=== PATIENT | male | born 1950 | race Caucasian/White ===

== ENCOUNTER 2021-07-22 00:25 | Inpatient (IN) | payer MEDICARE, SELFPAY ==
[2021-07-22] VITALS (29 sets, daily range): BP systolic 118–179; BP diastolic 78–114; PULSE 62–83; RESP 11–20; TEMP 36.7–37.2; O2SAT 86–97; BMI 34.7; BMI 34.2
--- NOTE | 2021-07-22 00:41 | EDS_ITS ---
HPI History of Present Illness Chief Complaint: Chest Pain Informant: patient Onset/Context/Timing Onset: Hours (6) Activity at onset: gradual Timing: Waxes and wanes Quality: Positive for Dull Location: Substernal Worsened By: Nothing Relieved By: Nothing Associated Symptoms: Positive for Acid Reflux; Negative for Nausea, Vomiting, Diaphoresis, Dyspnea, Cough, Fever, Lightheadedness and Palpitations Narrative Narrative: Patient presents with chest pain that began approximately 6 hours prior to arrival. Patient states it came on rather gradually. Patient states it has been waxing and waning since it started. Patient states it is over the substernal area and radiated into his right arm. Patient states nothing makes it worse and nothing makes it better. Patient states he thought he was having some reflux type symptoms and it would go away but it did not. Patient denies any nausea or vomiting. Patient denies any diaphoresis. Patient denies any shortness of breath or cough. Patient does have a history of coronary artery disease with coronary artery bypass graft. Patient states his last stress test or cardiac catheterization was several years ago. 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 CVD Risk Factors: Positive for Diabetes; Negative for Hypertension, Hypercholesterolemia, Family History 1' </=55 and Smoking PE Risk Factors: Negative for Recent Travel/Surgery, Recent Immobilization, Prior DVT or PE, Cancer and OCP + Smoking + >/=35 PFSH [facility] Medical History Coronary artery disease Diabetes Home Medications amlodipine 5 mg PO DAILY 07/22/21 [History Last Taken Unknown] aspirin 81 mg PO DAILY 07/22/21 [History Last Taken Unknown] cholecalciferol (vitamin D3) [Vitamin D3] 50 mcg PO DAILY 07/22/21 [History Last Taken Unknown] docusate sodium 300 mg PO BID 07/22/21 [History Last Taken Unknown] fluoxetine 20 mg PO DAILY 07/22/21 [History Last Taken Unknown] fluticasone propionate 1 puff INHALATION DAILY 07/22/21 [History Last Taken Unknown] folic acid 1 mg PO DAILY 07/22/21 [History Last Taken Unknown] gabapentin 600 mg PO TID 07/22/21 [History Last Taken Unknown] lisinopril-hydrochlorothiazide 1 tab PO DAILY 07/22/21 [History Last Taken Unknown] metformin 1,000 mg PO BID 07/22/21 [History Last Taken Unknown] metoprolol tartrate 100 mg PO BID 07/22/21 [History Last Taken Unknown] multivitamin 1 tab PO DAILY 07/22/21 [History Last Taken Unknown] sitagliptin [Januvia] 100 mg PO DAILY 07/22/21 [History Last Taken Unknown] Allergy/AdvReac Type Severity Reaction Status Date / Time No Known Allergies Allergy Verified 07/22/21 00:27 Surgical History H/O heart bypass surgery Social History Smoking Status: Never smoker ROS ROS ED Constitutional Constitutional ED: Denies chills or fever(s) Eyes Eyes: Reports blurry vision; Denies diplopia ENT ENT ED: Denies rhinorrhea or sore throat Cardiovascular Cardiovascular: Reports chest pain; Denies palpitations Respiratory/Chest Respiratory/Chest: Denies cough or dyspnea Gastrointestinal Gastrointestinal: Denies abdominal pain, nausea or vomiting Genitourinary Genitourinary ED: Denies dysuria or hematuria Musculoskeletal Musculoskeletal: Denies back pain or neck pain Integumentary Denies abscess or rash Neurologic Neurologic: Denies headache(s) or weakness Allergic/Immunologic Allergic/Immunologic ED: Denies mouth swelling or urticaria EXAM Physical Exam Const Vital Signs: 07/22/21 00:27 07/22/21 00:29 07/22/21 00:43 Temperature 98.4 F Temperature Source Oral Pulse Rate 81 Respiratory Rate 19 H Respiratory Effort Normal Respiratory Pattern Normal Blood Pressure 164/97 H Blood Pressure Mean 119 Pulse Ox 88 94 Oxygen Delivery Method Room Air Nasal Cannula Oxygen Flow Rate (L/min) 2 07/22/21 00:55 07/22/21 01:04 07/22/21 01:12 Temperature Temperature Source Pulse Rate 81 78 Respiratory Rate 16 Respiratory Effort Respiratory Pattern Blood Pressure 179/114 H 151/92 H Blood Pressure Mean 111 Pulse Ox 94 Oxygen Delivery Method Nasal Cannula Nasal Cannula Oxygen Flow Rate (L/min) 2 2 07/22/21 02:00 Temperature Temperature Source Pulse Rate 77 Respiratory Rate 16 Respiratory Effort Respiratory Pattern Blood Pressure 134/78 H Blood Pressure Mean 96 Pulse Ox 93 Oxygen Delivery Method Nasal Cannula Oxygen Flow Rate (L/min) 2 Positive well nourished, well developed and obese General Appearance ED: well developed and NAD Nutritional Appearance: obese HEENT normocephalic and atraumatic Eyes PERRL and EOMs intact bilaterally Neck supple and no JVD Chest Wall palpation of chest normal Resp normal respiratory effort and clear to auscultation bilaterally Effort and Inspection: Negative for respiratory distress Cardio regular rate, regular rhythm and no murmurs GI normal to inspection, nondistended, normoactive bowel sounds, soft to palpation, non-tender and non-distended Extremity normal to inspection General Extremety ED: Negative for edema or tenderness General Extremity: Negative for edema Neuro oriented x3, CN's II-XII intact bilaterally and no sensory deficits noted Sensorium / Orientation: awake and alert Motor Exam: strength 5/5 throughout Psych mental status grossly normal Heart Score History: Moderately Suspicious ECG: Normal Age: >/= 65 years Risk Factors: >/= 3 Risk Factors or History of CAD Troponin: >/=3 x Normal Limit Score: 7 MDM MDM MDM Narrative Medical decision making narrative: Patient was given aspirin here. EKG was obtained. On my interpretation, it showed a normal sinus rhythm with a rate of 79 with occasional PACs. MN interval, QRS interval, and QTc intervals were all normal. [place] was normal. There are no acute ST or T wave changes. Portable chest x-ray was obtained. There is 1 view. On my interpretation, there is some mild vascular congestion. There is no acute infiltrate. Bony thorax is normal. There is no cardiomegaly. Radiologist also interpreted the x-ray and agrees. CBC was within normal limits. Basic metabolic profile shows slightly elevated BUN of 24 and glucose of 217 but was otherwise within normal limits. BNP was slightly elevated at 154.5. Initial high-sensitivity troponin was normal at 24. 2-hour repeat high-sensitivity troponin was elevated at 708. Case was discussed with Dr. Terry. He recommended starting the patient on heparin drip. This was ordered. I was unable to find a report of his coronary artery bypass graft surgery. This was done in 2010. His records in clin[facility]ync only went back to 2012. Case was discussed with the hospitalist. He will admit the patient to his service. Patient understood and was agreeable with the plan. All questions were answered. Lab Data Attestation: I reviewed the patient's lab results. Labs: Laboratory Results - last 24 hr 07/22/21 07/22/21 07/22/21 00:29 00:29 00:29 WBC 8.2 RBC 4.43 L Hgb 14.3 Hct 41.4 MCV 93.5 MCH 32.3 H MCHC 34.5 RDW Std Deviation 42.5 RDW Coeff of [place]icha 12.3 Plt Count 217 MPV 9.3 Immature Gran % (Auto) 0.500 Neut % (Auto) 51.2 Lymph % (Auto) 32.5 [place] % (Auto) 11.4 H Eos % (Auto) 3.2 Baso % (Auto) 1.2 H Absolute Neuts (auto) 4.2 Absolute Lymphs (auto) 2.65 Nucleated RBC % 0 Sodium 140 Potassium 3.5 Chloride 109 H Carbon Dioxide 26.0 Anion Gap 5 BUN 24 H Creatinine 1.04 Estim Creat Clear Calc 70.39 Est GFR (MDRD) Af Amer 91 Est GFR (MDRD) Non-Af 75 BUN/Creatinine Ratio 23.1 H Glucose 217 H Calcium 9.1 Troponin I High Sens 24 B-Natriuretic Peptide 07/22/21 07/22/21 00:29 02:30 WBC RBC Hgb Hct MCV MCH MCHC RDW Std Deviation RDW Coeff of Licha Plt Count MPV Immature Gran % (Auto) Neut % (Auto) Lymph % (Auto) [place] % (Auto) Eos % (Auto) Baso % (Auto) Absolute Neuts (auto) Absolute Lymphs (auto) Nucleated RBC % Sodium Potassium Chloride Carbon Dioxide Anion Gap BUN Creatinine Estim Creat Clear Calc Est GFR (MDRD) Af Amer Est GFR (MDRD) Non-Af BUN/Creatinine Ratio Glucose Calcium Troponin I High Sens 708 H* B-Natriuretic Peptide 154.5 H Radiography Chest X-Ray - ED: 1 View, Read by ED Physician, Read by Radiologist and - (Mild congestion) Diagnostic Testing: Clinical Impression(s) from Imaging Studies Chest X-Ray 07/22/21 00:50 IMPRESSION: Suggestion of mild pulmonary edema Electronically Signed: Armando Shaikh DO at 1:32 EDT Reading Location ID and State: [facility] / ID Tel , Service support , EKG Initial EKG: Attestation: I personally reviewed and interpreted this EKG as follows: Interpretation: Sinus Rhythm (79) and No Acute Injury Pattern Prior EKG tracings: not available for review Discharge Plan Dx/Rx/DC Orders Clinical Impression: Chest pain, Non-STEMI (non-ST elevated myocardial infarction) Disposition Disposition: Acute Care Hospital [facility]
--- NOTE | 2021-07-22 00:50 | RAD_ITS ---
STUDY: X-RAY CHEST REASON FOR EXAM: Male, 71 years old. chest pain TECHNIQUE: Single AP portable view of the chest. COMPARISON: None. FINDINGS: Lungs are adequately inflated with subtle interstitial prominence in the perihilar region. Unsure if this represents mild pulmonary edema. Otherwise, the lungs are clear. There is mild cardiac enlargement. Median sternotomy wires are noted. Normal mediastinum and hugh. Normal visualized pulmonary arteries. Normal visualized aortic arch and descending thoracic aorta. Normal visualized thoracic spine. Normal visualized ribs, clavicles, and shoulders. There is no demonstrated abnormality of the visualized soft tissue structures of the upper abdomen. RAD/Chest 1 View (Portable) IMPRESSION: Suggestion of mild pulmonary edema Electronically Signed: Armando Shaikh DO at 1:32 EDT ,
--- NOTE | 2021-07-22 00:50 | EKG12_ITS ---
Test Reason : REPEAT EKG Blood Pressure : / mmHG Vent. Rate : 075 BPM Atrial Rate : 075 BPM P-R Int : 226 ms QRS Dur : 102 ms QT Int : 394 ms P-R-T Axes : 053 040 080 degrees QTc Int : 439 ms Sinus rhythm with sinus arrhythmia with 1st degree A-V block Otherwise normal ECG Confirmed by ANDREI HIGH, LINA ([id number]), editor dictionary MARCOS HERNANDEZ ([id number]) on 07/23/2021 12:53:09 PM Referred By: SAFIA Confirmed By:LINA FORBES MD
[2021-07-22 00:59] LABS: Absolute Lymphocyte Count 2.65 X10^3/uL (0.83-4.51); Absolute Neutrophil Count 4.2 X10^3/uL (2.0-7.7); Basophil% 1.2 % (0-1); Eosinophil# 0.26 X10^3/uL; Eosinophils% 3.2 % (0-5); Hematocrit 41.4 % (40-54); Hemoglobin 14.3 g/dL (13.0-16.5); Lymphocyte # 2.65 X10^3/ul (0.83-4.51); Lymphocyte % 32.5 % (19-41); Mean Corp Hgb Conc 34.5 g/dL (32-36); Mean Corpuscular Hgb 32.3 pg (27.0-32.0); Mean Corpuscular Volume 93.5 fL (80-94); Mean Platelet Vol. 9.3 fl (6.2-12.0); Monocyte# 0.93 X10^3/uL; Monocyte% 11.4 % (0-10); NRBC Flagged by Analyzer 0 % (0-5); Neutrophil # 4.18 X10^3/uL (2.7-7.7); Neutrophil % 51.2 % (47-70); Platelet Count 217 K/mm3 (150-450); RBC Distribution Width CV 12.3 % (11.6-14.6); RBC Distribution Width SD 42.5 fl (35.1-43.9); Red Blood Count 4.43 M/mm3 (4.6-6.2); White Blood Count 8.2 K/mm3 (4.4-11.0)
[2021-07-22] MEDS: Nitroglycerin SL (ED/IMG/CATH) 0.4 MG TABLET SL (01:04)
[2021-07-22 01:12] LABS: Anion Gap 5 (5-15); BUN 24 mg/dL (7-18); BUN/Creat Ratio 23.1 RATIO (10-20); Calcium,Total 9.1 mg/dL (8.5-10.1); Chloride 109 mmol/L (98-107); Creatinine, Serum 1.04 mg/dL (0.70-1.30); EST Glomerular Filtration Rate 75 mL/min (>60); Est Glom Filt Rate - Afr Amer 91 mL/min (>60); Estimated Creatinine Clearance 70.39 ml/min; Glucose 217 mg/dL (74-106); Potassium 3.5 mmol/L (3.5-5.1); Sodium Level 140 mmol/L (136-145)
[2021-07-22 01:18] LABS: Troponin-I HS (w/2H Reflex) 24 pg/mL (3.0-78.0)
[2021-07-22 02:02] LABS: BNP,B-Type NATRIURETIC PEPTIDE 154.5 pg/mL (0-100)
[2021-07-22 02:55] LABS: Troponin-I HS 708 pg/mL (3.0-78.0)
[2021-07-22 02:56] LABS: Reflex Troponin-HS? (from REC) Y
[2021-07-22] MEDS: Heparin Injection (Vial) 5,000 UNIT/ML VIAL 8000 UNIT IV (03:35)
--- NOTE | 2021-07-22 03:36 | HP.PCM.HOS_ITS ---
[facility] - General General Date of Admission: 07/22/21 HPI Narrative AMINATA DUDLEY, is a 71 M with a significant history of type 2 diabetes mellitus; hypertension; CAD status post three-vessel CABG in 2010; and muscle inflammation who presents to the emergency department with substernal chest pain that started about 6 hours before presentation. His chest pain was as severe and constant. He described the chest pain as sharp. The chest pain was progressively worsening. His chest pain radiated to his right arm. He denies any aggravating factors to the chest pain. He received aspirin and nitroglycerin which helped with the chest pain. His chest pain started while he was watching TV. He denies any nausea, vomiting, diarrhea or shortness of breath. [facility]LY [facility] Medical History Coronary artery disease Diabetes Home Medications amlodipine 5 mg PO DAILY 07/22/21 [History Last Taken Unknown] aspirin 81 mg PO DAILY 07/22/21 [History Last Taken Unknown] cholecalciferol (vitamin D3) [Vitamin D3] 50 mcg PO DAILY 07/22/21 [History Last Taken Unknown] docusate sodium 300 mg PO BID 07/22/21 [History Last Taken Unknown] fluoxetine 20 mg PO DAILY 07/22/21 [History Last Taken Unknown] fluticasone propionate 1 puff INHALATION DAILY 07/22/21 [History Last Taken Unknown] folic acid 1 mg PO DAILY 07/22/21 [History Last Taken Unknown] gabapentin 600 mg PO TID 07/22/21 [History Last Taken Unknown] lisinopril-hydrochlorothiazide 1 tab PO DAILY 07/22/21 [History Last Taken Unknown] metformin 1,000 mg PO BID 07/22/21 [History Last Taken Unknown] metoprolol tartrate 100 mg PO BID 07/22/21 [History Last Taken Unknown] multivitamin 1 tab PO DAILY 07/22/21 [History Last Taken Unknown] sitagliptin [Januvia] 100 mg PO DAILY 07/22/21 [History Last Taken Unknown] Allergy/AdvReac Type Severity Reaction Status Date / Time No Known Allergies Allergy Verified 07/22/21 00:27 Family History Other Diabetes Heart disease Kidney disease Family History other other (His father from heart attack at the age of 62.) Surgical History H/O heart bypass surgery History of carpal tunnel surgery Hx of cataract surgery Previous back surgery Social History Smoking Status: Former smoker ROS ROS Narrative Pertinent positives and pertinent negatives as noted in HPI. All other systems were reviewed and are negative. Vital Signs Vital Signs Vital Signs: 07/22/21 00:27 07/22/21 00:29 07/22/21 00:43 Temperature 98.4 F Temperature Source Oral Pulse Rate 81 Respiratory Rate 19 H Respiratory Effort Normal Respiratory Pattern Normal Blood Pressure 164/97 H Blood Pressure Mean 119 Pulse Ox 88 94 Oxygen Delivery Method Room Air Nasal Cannula Oxygen Flow Rate (L/min) 2 07/22/21 00:55 07/22/21 01:04 07/22/21 01:12 Temperature Temperature Source Pulse Rate 81 78 Respiratory Rate 16 Respiratory Effort Respiratory Pattern Blood Pressure 179/114 H 151/92 H Blood Pressure Mean 111 Pulse Ox 94 Oxygen Delivery Method Nasal Cannula Nasal Cannula Oxygen Flow Rate (L/min) 2 2 07/22/21 02:00 Temperature Temperature Source Pulse Rate 77 Respiratory Rate 16 Respiratory Effort Respiratory Pattern Blood Pressure 134/78 H Blood Pressure Mean 96 Pulse Ox 93 Oxygen Delivery Method Nasal Cannula Oxygen Flow Rate (L/min) 2 Weight Weight: 112.9 kg Body Mass Index (BMI) 34.7 Physical Exam Narrative Physical exam: General: Well-nourished, well-developed. Head: Normocephalic, atraumatic, no tenderness Eyes: Vision is grossly intact. EOMI ENT, no trauma, moist mucous membranes, no rhinorrhea Neck: Nontender, full range of motion, no spinal tenderness, deformities, step- off CVS: Regular rate and rhythm. S1-S2 present. No murmur, gallop or rub. Respiratory : Mild scattered rales, chest wall nontender, no wheezing Abdomen: Soft, nontender, nondistended, normal bowel sounds, no masses : Deferred Back: Nontender, no CVA tenderness, no midline spinal tenderness, deformities, step-offs Extremities: Nontender full range of motion, no trauma; 1+ edema bilateral lower legs and feet. Skin: Normal color, no trauma, abrasions Neuro: Alert, oriented, cranial nerves II through XII grossly intact. Psychiatry: Normal mood. Normal affect. Not depressed. Not anxious. Results Lab / Micro Data Result Diagrams: 07/22/21 00:29 07/22/21 00:29 Labs: Laboratory Results - last 24 hr 07/22/21 00:29: WBC 8.2, RBC 4.43 L, Hgb 14.3, Hct 41.4, MCV 93.5, MCH 32.3 H, MCHC 34.5, RDW Std Deviation 42.5, RDW Coeff of Licha 12.3, Plt Count 217, MPV 9.3, Immature Gran % (Auto) 0.500, Neut % (Auto) 51.2, Lymph % (Auto) 32.5, [place] % (Auto) 11.4 H, Eos % (Auto) 3.2, Baso % (Auto) 1.2 H, Absolute Neuts (auto) 4.2, Absolute Lymphs (auto) 2.65, Nucleated RBC % 0 07/22/21 00:29: Sodium 140, Potassium 3.5, Chloride 109 H, Carbon Dioxide 26.0, Anion Gap 5, BUN 24 H, Creatinine 1.04, Estim Creat Clear Calc 70.39, Est GFR (MDRD) Af Amer 91, Est GFR (MDRD) Non-Af 75, BUN/Creatinine Ratio 23.1 H, Glucose 217 H, Calcium 9.1 07/22/21 00:29: Troponin I High Sens 24 07/22/21 00:29: B-Natriuretic Peptide 154.5 H 07/22/21 02:30: Troponin I High Sens 708 H* Radiology Impression Chest X-Ray 07/22/21 00:50 IMPRESSION: Suggestion of mild pulmonary edema Electronically Signed: Armando Shaikh DO at 1:32 EDT , Assessment & Plan Assessment/Plan (1) Non-STEMI (non-ST elevated myocardial infarction): PLAN: Non-STEMI Review of labs shows that patient's troponin increased from 24 to 708; trend. Place on a monitored bed at progressive care unit Actual EKG tracing was independently visualized. EKG tracing showed sinus rhythm with PACs disease with no ST or T wave abnormalities. ASA 81 mg p.o. daily ordered SL NTG 0.4 mg prn as needed for chest pain ordered Morphine as needed for pain ordered We will check lipid panel. Statin: With history of muscle inflammation would hold off statin at this time. He has a history of diabetes; and CAD (S/P CABG) and all these should have been an indication for statin. CMP ordered. Anticoagulation: Emergency plan doctor discussed the case with voice professor on- call and heparin bolus and drip was given. Heparin drip continued. Stat EKG as needed for chest pain Cardiology counseled. Hypertension Blood pressure is not within goal Lisinopril and metoprolol continued. Trend blood pressure and adjust blood pressure medications. PRN Hydralazine ordered. Pulmonary edema BNP of 154.5 Patient with rales on examination. Chest x-ray was independently visualized and interpreted and agree with allege interpretation of pulmonary edema. Lasix 40 mg x 1 ordered. Diabetes mellitus Patient with hyperglycemia on presentation Januvia continued. N.p.o. except meds while waiting for cardiology to see jt last. Accu-Chek every 6 hours with correction scale insulin ordered. DVT prophylaxis: Not indicated as patient has been started on heparin drip.
[2021-07-22 04:47] LABS: Partial Thromboplast Time 28.9 Seconds (24.1-36.2)
--- NOTE | 2021-07-22 05:24 | EKG12_ITS ---
Test Reason : CHESTPAIN Blood Pressure : / mmHG Vent. Rate : 079 BPM Atrial Rate : 079 BPM P-R Int : 206 ms QRS Dur : 092 ms QT Int : 378 ms P-R-T Axes : 039 027 057 degrees QTc Int : 433 ms Sinus rhythm with Premature atrial complexes Otherwise normal ECG Confirmed by ANDREI HIGH, LINA ([id number]), primer expeditor and drier MARCOS HERNANDEZ ([id number]) on 07/23/2021 12:53:30 PM Referred By: SAFIA Confirmed By:LINA FORBES MD
--- NOTE | 2021-07-22 05:32 | EKG12_ITS ---
Test Reason : MORNING EKG Blood Pressure : / mmHG Vent. Rate : 075 BPM Atrial Rate : 075 BPM P-R Int : 216 ms QRS Dur : 092 ms QT Int : 380 ms P-R-T Axes : 049 021 074 degrees QTc Int : 424 ms Sinus rhythm with 1st degree A-V block Nonspecific T wave abnormality Abnormal ECG Confirmed by PRASHANTH HIGH, MOUNA ([id number]), content editor MARCOS HERNANDEZ ([id number]) on 07/28/2021 8:51:08 AM Referred By: ROMINA Confirmed By:MOUNA ALFORD MD
[2021-07-22] MEDS: 0.9% Saline Lock 10 ML Syringe IV ×3 (06:09→11:14)
[2021-07-22] MEDS: Furosemide 40 MG/4 ML Vial IV (06:09)
[2021-07-22 06:25] LABS: Bedside Glucose 251 mg/dL (74-106)
[2021-07-22] MEDS: Nitroglycerin (INPATIENT USE) 0.4 MG TAB.SUBL SL (06:25)
[2021-07-22 06:39] LABS: Absolute Lymphocyte Count 2.39 X10^3/uL (0.83-4.51); Absolute Neutrophil Count 5.8 X10^3/uL (2.0-7.7); Basophil# 0.08 X10^3/uL; Basophil% 0.9 % (0-1); Eosinophils% 2.1 % (0-5); Hematocrit 38.1 % (40-54); Hemoglobin 13.4 g/dL (13.0-16.5); Lymphocyte # 2.39 X10^3/ul (0.83-4.51); Lymphocyte % 25.4 % (19-41); Mean Corp Hgb Conc 35.2 g/dL (32-36); Mean Corpuscular Hgb 32.9 pg (27.0-32.0); Mean Corpuscular Volume 93.6 fL (80-94); Mean Platelet Vol. 9.5 fl (6.2-12.0); Monocyte# 0.87 X10^3/uL; Monocyte% 9.2 % (0-10); NRBC Flagged by Analyzer 0 % (0-5); Neutrophil # 5.83 X10^3/uL (2.7-7.7); Platelet Count 198 K/mm3 (150-450); RBC Distribution Width SD 41.8 fl (35.1-43.9); Red Blood Count 4.07 M/mm3 (4.6-6.2); White Blood Count 9.4 K/mm3 (4.4-11.0)
[2021-07-22 07:03] LABS: ALB/GLOB Ratio 1.2 RATIO (0.9-2.4); AST(SGOT) 29 U/L (15-37); Alanine Aminotransfer ALT/SGPT 27 U/L (16-61); Albumin, Serum 3.3 g/dL (3.2-5.0); Alkaline Phosphatase 55 U/L (45-117); Anion Gap 5 (5-15); BUN 22 mg/dL (7-18); BUN/Creat Ratio 21.6 RATIO (10-20); Calcium,Total 8.6 mg/dL (8.5-10.1); Chloride 107 mmol/L (98-107); Cholesterol 189 mg/dL (200); Creatinine, Serum 1.02 mg/dL (0.70-1.30); EST Glomerular Filtration Rate 77 mL/min (>60); Est Glom Filt Rate - Afr Amer 93 mL/min (>60); Estimated Creatinine Clearance 71.77 ml/min; Globulin 2.8 g/dL (2.2-4.2); Glucose 238 mg/dL (74-106); High Density Lipoprotein 38 mg/dL; Potassium 3.8 mmol/L (3.5-5.1); Protein, Total 6.1 g/dL (6.4-8.2); Sodium Level 139 mmol/L (136-145); Triglycerides 106 mg/dL; Very Low Density Lipoprotein 21 mg/dL (5-40)
[2021-07-22 07:31] LABS: Troponin-I HS 2280 pg/mL (3.0-78.0)
[2021-07-22] MEDS: Folic Acid 1 MG Tablet PO (07:53)
[2021-07-22] MEDS: amLODIPine 5 MG Tablet PO (07:53)
[2021-07-22] MEDS: Lisinopril 10 MG Tablet PO (07:54)
[2021-07-22] MEDS: Aspirin 81 MG TAB.CHEW PO (07:54)
[2021-07-22] MEDS: LINAGLIPTIN 5 MG TABLET PO (07:55)
[2021-07-22] MEDS: Multivitamins,Therapeutic Tablet 1 TABLET PO (07:55)
[2021-07-22] MEDS: Metoprolol Tartrate 100 MG Tablet PO (07:55)
[2021-07-22] MEDS: FLUoxetine 20 MG Capsule PO (07:55)
--- NOTE | 2021-07-22 07:56 | PCM.CONS.C ---
Assessment & Plan Assessment/Plan (1) Non-STEMI (non-ST elevated myocardial infarction): PLAN: The patient has a clinical scenario and objective findings compatible with a non-ST segment elevation NM-acute. At the present time he appears to be resting comfortably. He will continue to be monitored. He will continue medical therapy as deemed appropriate. He will be asked to have further noninvasive evaluation of his left ventricular wall motion and systolic function with a transthoracic echocardiogram. He will also be asked to have further invasive evaluation of his coronary/graft status with a diagnostic cardiac catheterization. The procedure and risk were discussed with him. He was agreeable to this approach. (2) CAD (coronary artery disease): PLAN: The patient has a history of underlying CAD. The details of his CAD are unknown at this time. His diagnosis did lead to a CABG in 2010. He states he has not required additional revascularization therapy since that time. He is going to continue medical management as well as a combination of noninvasive and invasive evaluation at this time. (3) S/P CABG (coronary artery bypass graft): PLAN: The patient states he received a mammary graft and 2 vein grafts. The details are unknown at this time. A request has been placed to the hospital that performed his open heart surgery for a copy of his cardiovascular records including his CABG report. In the interim he will continue medical management and proceed with his cardiovascular evaluation. (4) HLD (hyperlipidemia): PLAN: The patient has a history of hyperlipidemia. He will continue medical therapy and follow-up. (5) HTN (hypertension): PLAN: The patient has a history of hypertension. He will continue medical therapy. (6) Diabetes mellitus: PLAN: The patient has history of diabetes mellitus. He will continue evaluation care per internal medicine. Addt'l Comments The above was discussed with the patient and previously discussed with the [facility] ED physician staff. This note was generated using a voice recognition system and there may be incorrect words, spelling or punctuation that were not noted when reviewing the office note prior to saving. HPI Consult Data Date of Consult: 07/22/21 HPI Narrative HPI Narrative: AMINATA DUDLEY, is a 71 year old white male who presents for [facility] consultation based upon concerns of an acute non-ST segment elevation NM superimposed upon a history of CAD, CABG, hyperlipidemia, hypertension, and diabetes mellitus. He states that in 2010 he was diagnosed with CAD and subsequently underwent CABG through the [facility] in [place], [place]. He believes sometime since that time he had a follow-up diagnostic cardiac catheterization performed also through the [facility]. To the best of his knowledge he received a CABG x3 with a mammary artery and 2 vein grafts (taken from his right lower extremity) and upon follow-up evaluation with diagnostic cardiac catheterization did not require any form of percutaneous revascularization therapy. To the best of his knowledge at that time he has grafts remain patent. He states he was always told he had one other vessel that had a narrowing in it but it had not required bypass or percutaneous intervention. He wants to follow-up with his drill operator pneumatic last month but states he found out that his drill operator pneumatic retired in April of this year. He has yet to establish care with another drill operator pneumatic. He notes that recently he has been having chest discomfort which he describes as chest tightness. He initially attributed it to musculoskeletal discomfort from working in his garage. However yesterday it became much more bothersome as it radiated from his pectoral area to the center of his chest and then down his right upper extremity. He did not complain of associated dyspnea, nausea, or diaphoresis. He subsequently presented to the [facility] emergency department for evaluation. There he had an initial negative troponin I level. His initial ECG demonstrated sinus rhythm with a nonspecific T wave abnormality. He had a subsequent troponin I level that was positive. He was recommended for admission to the hospital for further inpatient evaluation and care including diagnostic cardiac catheterization. Since being in the hospital on medical management which had included nitroglycerin sublingual and IV heparin he states his symptoms resolved. He has had no new acute symptoms. He has had a follow-up troponin I level which has continued to increase. He has had follow-up ECGs that have continued demonstrate sinus rhythm with nonspecific T wave abnormality. He has denied orthopnea or PND. He has had some edema in the right lower extremity which is the side of his SVG harvest. There has been no report of near syncope or syncope. He states he does have a diagnosis of an inflammatory issue regarding his muscles. He was treated for period of time with corticosteroids. He states he felt better. However his glucose levels became much more challenging to control. Thus corticosteroids had to be discontinued. He states he was subsequently placed on medical therapy with folic acid. [facility] Medical History (Updated 07/22/21 @ 08:[address] Jeovanny Terry MD) CAD (coronary artery disease) Coronary artery disease Diabetes Diabetes mellitus HLD (hyperlipidemia) HTN (hypertension) Home Medications amlodipine 5 mg PO DAILY 07/22/21 [History Last Taken Unknown] aspirin 81 mg PO DAILY 07/22/21 [History Last Taken Unknown] cholecalciferol (vitamin D3) [Vitamin D3] 50 mcg PO DAILY 07/22/21 [History Last Taken Unknown] docusate sodium 300 mg PO BID 07/22/21 [History Last Taken Unknown] fluoxetine 20 mg PO DAILY 07/22/21 [History Last Taken Unknown] fluticasone propionate 1 puff INHALATION DAILY 07/22/21 [History Last Taken Unknown] folic acid 1 mg PO DAILY 07/22/21 [History Last Taken Unknown] gabapentin 600 mg PO TID 07/22/21 [History Last Taken Unknown] lisinopril-hydrochlorothiazide 1 tab PO DAILY 07/22/21 [History Last Taken Unknown] metformin 1,000 mg PO BID 07/22/21 [History Last Taken Unknown] metoprolol tartrate 100 mg PO BID 07/22/21 [History Last Taken Unknown] multivitamin 1 tab PO DAILY 07/22/21 [History Last Taken Unknown] sitagliptin [Januvia] 100 mg PO DAILY 07/22/21 [History Last Taken Unknown] Allergy/AdvReac Type Severity Reaction Status Date / Time No Known Allergies Allergy Verified 07/22/21 00:27 Family History Other Diabetes Heart disease Kidney disease Family History other Surgical History (Updated 07/22/21 @ 08:[address] Jeovanny Terry MD) H/O heart bypass surgery History of carpal tunnel surgery Hx of cataract surgery Previous back surgery S/P CABG (coronary artery bypass graft) Social History Smoking Status: Former smoker ROS Constitutional Constitutional: Reports as per HPI Eyes Eyes: Reports as per HPI ENT HEENT: Reports as per HPI Cardiovascular Cardiovascular: Reports chest pain at rest Respiratory/Chest Respiratory/Chest: Reports as per HPI Gastrointestinal Gastrointestinal: Reports as per HPI Genitourinary Genitourinary: Reports as per HPI Musculoskeletal Musculoskeletal: Reports myalgias Integumentary Integumentary: Reports as per HPI Neurologic Neurologic: Reports as per HPI Psychiatric Psychiatric: Reports as per HPI Physical Exam Const alert, oriented x3, no apparent distress and healthy appearing Orientation / Consciousness: awake HEENT normocephalic, head/scalp atraumatic and hearing grossly normal bilaterally Eyes PERRL, EOMs intact bilaterally and conjunctivae normal Neck full ROM, supple and no JVD Chest Chest: midline sternotomy incision Resp clear to auscultation bilaterally Cardio regular rate, regular rhythm, S1 normal heart sound and S2 normal heart sound GI normal to inspection, nondistended, normoactive bowel sounds Extremity no pedal edema Extremity Narrative: Right lower extremity: Surgical incisions Skin no rashes or lesions noted Neuro oriented x3, moves all extremities, no focal motor deficits and no sensory deficits noted Psych mental status grossly normal Risk Stratification Risk Stratification Applicable: Yes Age >/= 65: Yes >/= 3 CAD Risk Factors (HTN, HLD, DM, family hx of CAD, or current smoker): Yes Aspirin Use in the Past 7 Days: Yes Severe Angina (>/= episodes in 24 hours): Yes EKG ST Changes >/= 0.5mm: No Positive Cardiac Marker: Yes NIKOS Risk Stratification Score: 5 NIKOS % Risk: 25% Risk Procedure Criteria Type of Procedure Procedure Type: Elective Elective Risks - COVID COVID Risk Discussion: The surgeon/proceduralist and patient have discussed in detail the risk of exposure to and/or potential harm posed by the COVID-19 virus with having a surgery/procedure at this time versus the risk of delaying the surgery/procedure. It is not possible to know either the risk of delaying the surgery or procedure or chance of getting an infection with perfect accuracy, but a joint decision was made between the patient and the surgeon/proceduralist to proceed at this time with the scheduled surgery/procedure as indicated on the consent form. Objective Data Vital Signs: Vital Signs Temp Pulse Resp BP Pulse Ox 98.0 F 69 16 132/78 H 97 07/22/21 07:52 07/22/21 07:52 07/22/21 07:52 07/22/21 07:52 07/22/21 07:52 Oxygen Flow Rate (L/min) 2 Oxygen Delivery Method Nasal Cannula Weight: 245 lb 13.047 oz Body Mass Index (BMI) 34.2 Lab / Micro Data Result Diagrams: 07/22/21 06:10 07/22/21 06:10 Labs: Laboratory Results - last 24 hr 07/22/21 00:29: WBC 8.2, RBC 4.43 L, Hgb 14.3, Hct 41.4, MCV 93.5, MCH 32.3 H, MCHC 34.5, RDW Std Deviation 42.5, RDW Coeff of Licha 12.3, Plt Count 217, MPV 9.3, Immature Gran % (Auto) 0.500, Neut % (Auto) 51.2, Lymph % (Auto) 32.5, Harrison % (Auto) 11.4 H, Eos % (Auto) 3.2, Baso % (Auto) 1.2 H, Absolute Neuts (auto) 4.2, Absolute Lymphs (auto) 2.65, Nucleated RBC % 0 07/22/21 00:29: Sodium 140, Potassium 3.5, Chloride 109 H, Carbon Dioxide 26.0, Anion Gap 5, BUN 24 H, Creatinine 1.04, Estim Creat Clear Calc 70.39, Est GFR (MDRD) Af Amer 91, Est GFR (MDRD) Non-Af 75, BUN/Creatinine Ratio 23.1 H, Glucose 217 H, Calcium 9.1 07/22/21 00:29: Troponin I High Sens 24 07/22/21 00:29: B-Natriuretic Peptide 154.5 H 07/22/21 02:30: Troponin I High Sens 708 H* 07/22/21 03:20: PT 13.0, INR 1.0, APTT 28.9 07/22/21 06:10: WBC 9.4, RBC 4.07 L, Hgb 13.4, Hct 38.1 L, MCV 93.6, MCH 32.9 H, MCHC 35.2, RDW Std Deviation 41.8, RDW Coeff of Licha 12.0, Plt Count 198, MPV 9.5, Immature Gran % (Auto) 0.400, Neut % (Auto) 62.0, Lymph % (Auto) 25.4, Harrison % (Auto) 9.2, Eos % (Auto) 2.1, Baso % (Auto) 0.9, Absolute Neuts (auto) 5.8, Absolute Lymphs (auto) 2.39, Nucleated RBC % 0 07/22/21 06:10: Sodium 139, Potassium 3.8, Chloride 107, Carbon Dioxide 27.0, Anion Gap 5, BUN 22 H, Creatinine 1.02, Estim Creat Clear Calc 71.77, Est GFR (MDRD) Af Amer 93, Est GFR (MDRD) Non-Af 77, BUN/Creatinine Ratio 21.6 H, Glucose 238 H, Calcium 8.6, Total Bilirubin 0.50, AST 29, ALT 27, Alkaline Phosphatase 55, Total Protein 6.1 L, Albumin 3.3, Globulin 2.8, Albumin/Globulin Ratio 1.2, Triglycerides 106, Cholesterol 189, LDL Cholesterol 130, VLDL Cholesterol 21, HDL Cholesterol 38 L 07/22/21 06:10: Troponin I High Sens 2280 H* 07/22/21 06:10: POC Glucose 251 H Cardiology Labs/Tests 07/22/21 00:29: WBC 8.2, RBC 4.43 L, Hgb 14.3, Hct 41.4, MCV 93.5, MCH 32.3 H, MCHC 34.5, Plt Count 217, MPV 9.3, Immature Gran % (Auto) 0.500, Neut % (Auto) 51.2, Lymph % (Auto) 32.5, Harrison % (Auto) 11.4 H, Eos % (Auto) 3.2, Baso % (Auto) 1.2 H, Absolute Neuts (auto) 4.2, Nucleated RBC % 0 07/22/21 00:29: Sodium 140, Potassium 3.5, Chloride 109 H, Carbon Dioxide 26.0, Anion Gap 5, BUN 24 H, Creatinine 1.04, Est GFR (MDRD) Af Amer 91, Est GFR (MDRD) Non-Af 75, BUN/Creatinine Ratio 23.1 H, Glucose 217 H, Calcium 9.1 07/22/21 00:29: B-Natriuretic Peptide 154.5 H 07/22/21 03:20: PT 13.0, INR 1.0, APTT 28.9 07/22/21 06:10: WBC 9.4, RBC 4.07 L, Hgb 13.4, Hct 38.1 L, MCV 93.6, MCH 32.9 H, MCHC 35.2, Plt Count 198, MPV 9.5, Immature Gran % (Auto) 0.400, Neut % (Auto) 62.0, Lymph % (Auto) 25.4, Harrison % (Auto) 9.2, Eos % (Auto) 2.1, Baso % (Auto) 0.9, Absolute Neuts (auto) 5.8, Nucleated RBC % 0 07/22/21 06:10: Sodium 139, Potassium 3.8, Chloride 107, Carbon Dioxide 27.0, Anion Gap 5, BUN 22 H, Creatinine 1.02, Est GFR (MDRD) Af Amer 93, Est GFR (MDRD) Non-Af 77, BUN/Creatinine Ratio 21.6 H, Glucose 238 H, Calcium 8.6, Total Bilirubin 0.50, Triglycerides 106, Cholesterol 189, LDL Cholesterol 130, VLDL Cholesterol 21, HDL Cholesterol 38 L Rhythm: Sinus rhythm EKG: As noted above Radiography Diagnostic Testing: Radiology Impression Chest X-Ray 07/22/21 00:50 IMPRESSION: Suggestion of mild pulmonary edema Electronically Signed: Armando Shaikh DO at 1:32 EDT ,
--- NOTE | 2021-07-22 08:15 | ECHOCS_ITS ---
Reason For Study: S/P VT Procedure This was a 2D Doppler, Color Flow transthoracic echocardiogram. Technically difficult study, patient scanned supine post heart cath. Contrast injection performed. The study was technically difficult. Contrast injection was performed. Exam performed portable in patient room. Left Ventricle Mildly dilated left ventricle. Mild to moderate segmental systolic dysfunction (see wall motion). The estimated ejection fraction is 40 %. No evidence for diastolic dysfunction. Mid-Anterior : Akinetic. Mid-Lateral : Hypokinetic. Mid-Posterior: Hypokinetic. Mid-Inferior: Hypokinetic. Mid- inferoseptal : Akinetic. Mid-anteroseptal : Akinetic. Sheridan : Akinetic. Right Ventricle Normal RV size. Normal systolic function. Atria Normal left atrium. Normal right atrium. No doppler evidence for ASD. Mitral Valve There is no mitral annular calcification. Normal mitral valve. Trivial mitral valve insufficiency. Tricuspid Valve Normal tricuspid valve. Mild tricuspid valve insufficiency. Right ventricular systolic pressure estimated to be 27 mmHg. Aortic Valve Trisinus/trileaflet aortic valve. Normal aortic valve. Mild (1+) aortic valve insufficiency. Pulmonic Valve The pulmonic valve is not well visualized. Trivial pulmonic valve insufficiency. Great Vessels Mildly dilated aortic root. Pericardium/Pleural No pericardial effusion. Medication Diluted definity 3ml given slow IV push to enhance endocardial definition. MMode/2D Measurements & Calculations LVIDd: 5.9 cm IVSd: 0.89 cm LVOT diam: 2.3 cm LVIDs: 4.8 cm LVPWd: 0.74 cm FS: 18.9 % LVOT area: 4.2 cm2 Ao root diam: 4.4 cm LAV(MOD-bp): 64.7 ml LA A4 area: 21.2 cm2 LA dimension: 4.3 cm LAV(MOD-bp) Indexed: 28.1 ml/m2 LAV(MOD-sp2): 60.9 ml LAV(MOD-sp4): 65.7 ml Time Measurements MV dec time: 0.24 sec Doppler Measurements & Calculations MV E max zach: 49.7 cm/sec Lat Peak E' Zach: 5.2 cm/sec Med Peak E' Zach: 5.0 cm/sec MV A max zach: 72.6 cm/sec E/E' lat: 9.5 E/E' med: 9.9 MV E/A: 0.69 MV V2 max: 71.0 cm/sec MV P1/2t max zach: 54.4 cm/sec Ao V2 max: 88.8 cm/sec MV max P.0 mmHg MV P1/2t: 93.6 msec Ao max P.2 mmHg MV V2 mean: 38.9 cm/sec MV dec slope: 170.2 cm/sec2 Ao V2 mean: 61.2 cm/sec MV mean P.71 mmHg Ao mean P.7 mmHg MV V2 VTI: 22.4 cm MVA(P1/2t): 2.4 cm2 Ao V2 VTI: 17.2 cm MVA(VTI): 3.1 cm2 LINSEY(I,D): 4.0 cm2 LINSEY(V,D): 4.1 cm2 AI max zach: 232.2 cm/sec LV V1 max: 85.8 cm/sec SV(LVOT): 69.6 ml AI max P.6 mmHg LV V1 max P.9 mmHg LV V1 mean P.4 mmHg AI dec slope: 111.8 cm/sec2 LV V1 mean: 55.3 cm/sec AI P1/2t: 608.5 msec LV V1 VTI: 16.5 cm PA V2 max: 82.8 cm/sec TR max zach: 246.0 cm/sec TR max P.2 mmHg ECHO/Echo Complete W/ Contrast Interpretation Summary The study was technically difficult. Contrast injection was performed. Mildly dilated left ventricle. Mild to moderate segmental systolic dysfunction (see wall motion). The estimated ejection fraction is 40 %. Mild tricuspid valve insufficiency. Mild (1+) aortic valve insufficiency. Trivial pulmonic valve insufficiency. Mildly dilated aortic root. Right ventricular systolic pressure estimated to be 27 mmHg. No evidence for diastolic dysfunction. Ordering Physician: Jeovanny Terry Referring Physician: Out of Town Doctor Performed By: Gerry Crouch RCS
--- NOTE | 2021-07-22 08:18 | CASEMGMT ---
According to the [facility] website, the following are in-network tertiary facilities: [facility], [facility], [facility], [facility], [facility], [facility], [facility], [facility], and . Leonid JAMES CM
[2021-07-22] MEDS: 0.9% Normal Saline 1,000 ML 50 ML IV (11:10)
[2021-07-22] MEDS: Nitroglycerin Infusion 250 ML 3 MG CONT INF (11:11)
[2021-07-22 11:37] LABS: Bedside Glucose 193 mg/dL (74-106)
--- NOTE | 2021-07-22 11:37 | PCM.DC.SUM ---
Providers Date of Admission: 07/22/21 Date of Discharge: 07/22/21 Primary Care Physician: DEWEY MEADE Consultations 07/22/21 05:24 Consult: Cardiology Routine Consulting Provider: Jeovanny Terry Reason for Consult: NSTEMI EMERGENT Consult: No MD Notified: Yes Date Notified: 07/22/21 Time Notified: 04:43 Method of Notification: notified in ED Reason For Visit: NSTEMI Diagnosis Discharge Diagnosis (1) Non-STEMI (non-ST elevated myocardial infarction): Status: Acute Code(s): I21.4 - Non-ST elevation (NSTEMI) myocardial infarction (2) CAD (coronary artery disease): Status: Acute Code(s): I25.10 - Atherosclerotic heart disease of [place] coronary artery without angina pectoris (3) S/P CABG (coronary artery bypass graft): Status: Acute Code(s): Z95.1 - Presence of aortocoronary bypass graft (4) HLD (hyperlipidemia): Status: Acute Code(s): E78.5 - Hyperlipidemia, unspecified (5) HTN (hypertension): Status: Chronic Code(s): I10 - Essential (primary) hypertension (6) Diabetes mellitus: Status: Acute Code(s): E11.9 - Type 2 diabetes mellitus without complications Medications at Discharge Home Medications amlodipine 5 mg PO DAILY 07/22/21 aspirin 81 mg PO DAILY 07/22/21 cholecalciferol (vitamin D3) [Vitamin D3] 50 mcg PO DAILY 07/22/21 docusate sodium 300 mg PO BID 07/22/21 fluoxetine 20 mg PO DAILY 07/22/21 fluticasone propionate 1 puff INHALATION DAILY 07/22/21 folic acid 1 mg PO DAILY 07/22/21 gabapentin 600 mg PO TID 07/22/21 lisinopril-hydrochlorothiazide 1 tab PO DAILY 07/22/21 metformin 1,000 mg PO BID 07/22/21 metoprolol tartrate 100 mg PO BID 07/22/21 multivitamin 1 tab PO DAILY 07/22/21 sitagliptin [Januvia] 100 mg PO DAILY 07/22/21 Hospital Course Operations None Procedures 2-D Echocardiogram and Cardiac catheterization Summary of Care Provided Minutes Spent on Discharge: 35 Hospital Course: Mr. Friend is a 71-year-old white male who presented to the emergency department early this morning on 07/22/2021 with a chief complaint of chest pain. He has a significant history of DM-2, hypertension, CAD status post a three-vessel bypass in 2010, neuropathy, and depression. He presented secondary to substernal chest pain that started approximately 6 hours prior to presentation. He noted that the chest pain was severe and constant and have been progressively worsening. Pain radiated into his right arm. He denied any aggravating factors. In the emergency department he received aspirin and nitroglycerin which helped his symptoms. He denies any associated nausea, vomiting, diaphoresis, or shortness of breath. His vital signs in the emergency department were overall unremarkable other than some mildly elevated blood pressure at 155/89. His CBC was overall unimpressive. His coags were normal. His BMP was unimpressive other than elevated glucose at 238. A BNP was obtained and found to be 154.5. An initial troponin was obtained and found to be 24 a repeat delta troponin was performed in emergency department and increased to 708. Given this rise in his ongoing chest pain he was admitted to the PCU for an NSTEMI. He was started on heparin drip and continued on his home medications. Given his cardiac enzyme elevation he was taken to the cardiac catheterization lab where he was found to have a significant disease with one of his graft completely down and the left main with a heavily calcified and stenotic lesion. Given this is a protective left main they considered PCI here however with the significant calcification it was felt to be high risk and need for cardiothoracic backup and therefore he was transferred to [facility] for further cardiac intervention. His echocardiogram was pending upon discharge however his LV gram done during the [employer] showed wall motion abnormality of the LV. His cholesterol was obtained he was hospitalized with a total cholesterol of 189/LDL 130/HDL 38/triglycerides 106. He is not on a statin at home and this was initiated 80 mg at at bedtime while he was hospitalized. Discharge diagnoses: NSTEMI CAD status post history of three-vessel CABG Hypertension Hyperlipidemia DM-2 Diabetic neuropathy Seasonal allergies Depression Obesity Physical Exam Const alert, oriented x3 and no apparent distress Constitutional Narrative: Obese, older white male lying in bed currently receiving echocardiogram, patient appears comfortable and nontoxic, currently complaining of less than a 2 out of 10 chest pain General Appearance: cooperative, comfortable, well kempt and well developed Exam Limitations: no limitations Nutritional Appearance: obese HEENT normocephalic, head/scalp atraumatic, hearing grossly normal bilaterally and moist oral mucous membranes HEENT Narrative: Dentures in place, Mallampati 2-3, no thrush Resp normal respiratory effort, no retractions, no use of accessory muscles and clear to auscultation bilaterally Auscultation: Negative for crackles, rales, rhonchi or wheezes Cardio regular rate, regular rhythm, S1 normal heart sound, S2 normal heart sound, no murmurs, no rub, no gallops, no clicks and no JVD GI normal to inspection, nondistended, normoactive bowel sounds, soft to palpation, non-tender and non-distended Extremity no clubbing, cyanosis or edema Extremity Narrative: Right groin with post catheterization dressing in place, soft without ecchymosis, no bruit auscultated Neuro oriented x3, CN's II-XII intact bilaterally, moves all extremities and no focal motor deficits Sensorium / Orientation: awake and alert Speech: speech normal Psych affect normal Psych Narrative: Very pleasant Weight / BMI Weight Weight: 111.5 kg Body Mass Index (BMI) 34.2 ABG / Lab / Microbiology Data Result Diagrams: 07/22/21 06:10 07/22/21 06:10 Laboratory: Laboratory Results - last 24 hr 07/22/21 00:29: WBC 8.2, RBC 4.43 L, Hgb 14.3, Hct 41.4, MCV 93.5, MCH 32.3 H, MCHC 34.5, RDW Std Deviation 42.5, RDW Coeff of Licha 12.3, Plt Count 217, MPV 9.3, Immature Gran % (Auto) 0.500, Neut % (Auto) 51.2, Lymph % (Auto) 32.5, [place] % (Auto) 11.4 H, Eos % (Auto) 3.2, Baso % (Auto) 1.2 H, Absolute Neuts (auto) 4.2, Absolute Lymphs (auto) 2.65, Nucleated RBC % 0 07/22/21 00:29: Sodium 140, Potassium 3.5, Chloride 109 H, Carbon Dioxide 26.0, Anion Gap 5, BUN 24 H, Creatinine 1.04, Estim Creat Clear Calc 70.39, Est GFR (MDRD) Af Amer 91, Est GFR (MDRD) Non-Af 75, BUN/Creatinine Ratio 23.1 H, Glucose 217 H, Calcium 9.1 07/22/21 00:29: Troponin I High Sens 24 07/22/21 00:29: B-Natriuretic Peptide 154.5 H 07/22/21 02:30: Troponin I High Sens 708 H* 07/22/21 03:20: PT 13.0, INR 1.0, APTT 28.9 07/22/21 06:10: WBC 9.4, RBC 4.07 L, Hgb 13.4, Hct 38.1 L, MCV 93.6, MCH 32.9 H, MCHC 35.2, RDW Std Deviation 41.8, RDW Coeff of [place]icha 12.0, Plt Count 198, MPV 9.5, Immature Gran % (Auto) 0.400, Neut % (Auto) 62.0, Lymph % (Auto) 25.4, [place] % (Auto) 9.2, Eos % (Auto) 2.1, Baso % (Auto) 0.9, Absolute Neuts (auto) 5.8, Absolute Lymphs (auto) 2.39, Nucleated RBC % 0 07/22/21 06:10: Sodium 139, Potassium 3.8, Chloride 107, Carbon Dioxide 27.0, Anion Gap 5, BUN 22 H, Creatinine 1.02, Estim Creat Clear Calc 71.77, Est GFR (MDRD) Af Amer 93, Est GFR (MDRD) Non-Af 77, BUN/Creatinine Ratio 21.6 H, Glucose 238 H, Calcium 8.6, Total Bilirubin 0.50, AST 29, ALT 27, Alkaline Phosphatase 55, Total Protein 6.1 L, Albumin 3.3, Globulin 2.8, Albumin/Globulin Ratio 1.2, Triglycerides 106, Cholesterol 189, LDL Cholesterol 130, VLDL Cholesterol 21, HDL Cholesterol 38 L 07/22/21 06:10: Troponin I High Sens 2280 H* 07/22/21 06:10: POC Glucose 251 H Radiography Diagnostic Testing: Radiology Impression Chest X-Ray 07/22/21 00:50 IMPRESSION: Suggestion of mild pulmonary edema Electronically Signed: Armando Shaikh DO at 1:32 EDT , Meaningful Use Info Meaningful Use Diagnoses (Choose all that apply): None applicable AMI/Post PCI/Angioplasty Aspirin given w/in 24hrs of arrival?: Yes Discharge Plan Admission Admit Date/Time: 07/22/21 04:35 Primary Reason for Your Visit: chest pain Attending Provider: Lindsay Field Consulting Providers: Jeovanny Terry Discharge Orders/Prescriptions Prescriptions: No Action multivitamin Tablet 1 tab PO DAILY RF: 0 gabapentin 600 mg Tablet 600 mg PO TID RF: 0 amlodipine 5 mg Tablet 5 mg PO DAILY RF: 0 metformin 1,000 mg Tablet 1,000 mg PO BID RF: 0 docusate sodium 100 mg Capsule 300 mg PO BID RF: 0 folic acid 1 mg Tablet 1 mg PO DAILY RF: 0 lisinopril-hydrochlorothiazide 10-12.5 mg Tablet 1 tab PO DAILY RF: 0 fluoxetine 20 mg Capsule 20 mg PO DAILY RF: 0 fluticasone propionate 110 mcg/actuation Hfa Aerosol Inhaler 1 puff INHALATION DAILY RF: 0 metoprolol tartrate 25 mg Tablet 100 mg PO BID RF: 0 Januvia 100 mg Tablet 100 mg PO DAILY RF: 0 cholecalciferol (vitamin D3) [Vitamin D3] 50 mcg (2,000 unit) Tablet 50 mcg PO DAILY RF: 0 aspirin 81 mg Capsule 81 mg PO DAILY RF: 0 Referrals / Follow Up: DEWEY MEADE [Other] DEWEY MEADE [Other] Disposition Disposition (needs filled in before D/C Order can be placed): Acute Care Hospital Charges/Coding Visit Charges OBSV E&M: 56116 Observ/hosp same date L3
[2021-07-22] MEDS: Insulin Lispro 100 UNIT/ML INSULN.PEN SC (12:05)
[2021-07-22] MEDS: hydroCHLOROthiazide 12.5mg 12.5 MG PO (12:05)
--- NOTE | 2021-07-22 13:20 | CL.D_ITS ---
Patient Name: AMINATA DUDLEY Study Date: 07/22/2021 Performing: Jeovanny Terry MD Ht: 70.87 inches 180 cm : 1950 Wt: 246.92 lbs 112 kg Age: 71 Gender: male BSA: 2.3 PROCEDURE(S) PERFORMED DC03-(73207)LHC/COR/LV/CABG DC11-([id number])AO ROOT ANGIO WITH HEART CATH CLINICAL PROFILE AND INDICATIONS Indications: ACS <= 24 hrs, Suspected CAD Heart Failure: None Stress/Imaging Stress/Image Study Performed: No Angina Classification Anginal Classification w/in 2 Weeks: CCS IV CAD Presentations: Non-STEMI. CONCLUSIONS Elevated Left Ventricular End Diastolic Pressure Segmented LV systolic dysfunction- Mild to Moderate LVEF: by LV gram 40 % [place] Multivessel CAD RECOMMENDATIONS Risk factor modification Medical therapy Referred for immediate PCI: at a tertiary care center secondary to the left main disease / calcificat ion for high risk PCI Case discussed / reviewed with Dr. Sheets of interventional cardiology. Case discussed with and the patient accepted in transfer by Dr. Mari of [facility] interventional ca rdiology. DESCRIPTION OF PROCEDURE The patient arrived to the procedure lab. The risks and benefits of the procedure as well as a full d escription of our services here and current unavailability of surgical backup were fully explained to the patient and/or their significant other prior to the catheterization. The Timeout was completed, verifying the correct patient and procedure. The patient's procedural site was prepped and draped in the usual fashion. Local anesthetic was given subcutaneously to right groin region with Lidocaine 2%. Using a modified Seldinger technique, arterial access was obtained via the right femoral artery, a 4 Fr sheath was inserted Left Coronary Artery selective angiography was performed in multiple views us ing a 5 Fr. JL 5 catheter. Left Coronary Artery selective angiography was performed in multiple views using a 4 Fr. AL 1 catheter. Left Coronary Artery selective angiography was performed in multiple vi ews using a 4 Fr. JL6 catheter. Right Coronary Artery selective angiography was then performed in multiple views using a 4 Fr. 3DRC catheter. Left internal mammary artery graft to the LA D selective angiography was performed in multiple views using a 4 Fr. JR4 catheter. Ascending (root) aorta selective angiography was then performed in single view. Ascending (root) aorta selective angio graphy was then performed in single view. Left Ventriculography was performed in PATEL projection using a 4 Fr. Pigtail catheter. LV to AO pullback pressures were then recorded.The arterial sheath was pul led and manual compression applied until hemostasis is achieved. CORONARY ANGIOGRAPHY DOMINANCE: Right Dominant LEFT HEART ASSESSMENT Left Ventricular Ejection Fraction: by LV Gram 40 % Anterior Akinesis. Apical Akinesis Elevated Left Ventricular End Diastolic Pressure LVEDP: 37 mmHg LEFT MAIN: Severe calcification, Mild luminal irregularities, distal: eccentric: 90 % Stenosis LEFT ANTERIOR DESCENDING ARTERY: OSTIAL LAD: 85 % Stenosis PROX LAD: diffuse: 50 % Stenosis MID LAD: s/p SP and DX1: subtotally occluded with the mid to distal vessel filling from competitive f low but predominantly from TORRES graft flow with the distal /apical LAD appearing occluded. CIRCUMFLEX ARTERY: Mild luminal irregularities OSTIAL CIRC: 85 % Stenosis OM 1: Proximal - Mild luminal irregularities RIGHT CORONARY ARTERY: Mild luminal irregularities MID RCA: 50 % Stenosis RT PDA: Distal - 50 - 75 % Stenosis RIGHT AV SEGMENT: distal: 50 - 75 % Stenosis GRAFTS: TORRES graft to the Mid LAD is patent Saphenous Vein graft to the CIRC sequential graft to the LCX and OM1: occluded AORTIC ROOT: Angiographically normal COMPLICATIONS No Complications PROCEDURE MEDICATIONS Fentanyl 50 mcg IV Versed 1 mg IV Oxygen: 2 L/min via nasal cannula Nitro Tab 4 mg PO 07/22/2021 09:48:31 Nitro glycerin 25mg / 250ml D5W @ 5 mcg/min IV started 07/22/2021 10:29:50 SUMMARY OF HEMODYNAMIC DATA Time AIR REST ECG 08:14:52 AO 120/67 (89) SA 08:32:12 LV 179/6, 40 09:20:39 LV 177/2, 37 09:20:45 LV 178/7, 36 09:25:09 LV 180/1, 34 09:25:15 LVp 181/0, 36 09:25:21 AOp 178/91 (126) 09:25:26 RM AIR REST 10:21:11 Signed By Jeovanny Terry MD On 07/22/2021 1:19:37 PM Jeovanny Terry MD
--- NOTE | 2021-07-22 15:15 | NURSING ---
Pt ambulated in halls post bedrest completion, groin site soft, no bleeding or hematoma noted.
[2021-07-22 16:19] LABS: Partial Thromboplast Time 28.7 Seconds (24.1-36.2)
--- NOTE | 2021-07-22 17:05 | NURSING ---
All documentation and medication administration performed by SN Cole done under the supervision of this RN.
== END 2021-07-22 16:51 | disposition short-term general hospital (02) | DRG 281 ==
LOC: ED 03:20 → PCU 04:43
PROVIDERS: Internal Medicine Cardiovascular Disease; Admitting Provider Hospitalist; Emergency Provider Emergency Medicine; Visit Provider Internal Medicine
DX: I21.4 Non-ST elevation (NSTEMI) myocardial infarction (principal); J81.1 Chronic pulmonary edema; E11.40 Type 2 diabetes mellitus with diabetic neuropathy, unspecified; I25.10 Atherosclerotic heart disease of native coronary artery without angina pectoris; I10 Essential (primary) hypertension; E78.5 Hyperlipidemia, unspecified; J30.2 Other seasonal allergic rhinitis; Z87.891 Personal history of nicotine dependence; F32.A Depression, unspecified; E66.9 Obesity, unspecified; Z79.82 Long term (current) use of aspirin; Z79.84 Long term (current) use of oral hypoglycemic drugs; Z79.899 Other long term (current) drug therapy; Z68.34 Body mass index [BMI] 34.0-34.9, adult; Z95.1 Presence of aortocoronary bypass graft
CPT/HCPCS: 36415; 71045; 80048; 80053; 80061; 82962; 83880; 84484; 85025; 85610; 85730; 93005; 93306; 93459; 93567; 99152; 99153; 99285; J7030; J7040; Q9957; Q9967; A4216; C1769; C1894; C8929; J1940